=== PATIENT | female | born 1945 | race African-American/Black ===

== ENCOUNTER 2021-05-09 11:24 | Emergency (ER) | payer MEDICARE, BC ==
[~2021-05-09] VITALS: Ht 154.9 cm; Wt 100.0 kg
--- NOTE | 2021-05-09 12:34 | PHYS DOC ---
Past Medical History Additional Past Medical Histor: RA,OA Past Surgical History: Hysterectomy, Tonsillectomy, Other Additional Past Surgical Histo: KNEE Smoking Status: Never Smoker Alcohol Use: None General Adult EDM: Chief Complaint: ABDOMINAL PAIN HPI: HPI: Patient is a 75 year old female who presents with right upper quadrant abdominal pain, with nausea and vomiting. She denies constipation or diarrhea. She denies urinary symptoms. She denies chest pain, cough, dyspnea. She denies dizziness or diaphoresis. She denies syncope. She is actively vomiting on arrival. She denies any previous similar symptoms. She has not had a thing to eat today, but she had quite a heavy meal last night for dinner. She has had a previous abdominal hysterectomy but she still has her gallbladder and appendix. She denies any lower abdominal pain. She denies any radiation of pain to her back or flank. She denies urinary symptoms. She denies fall or any abdominal trauma. She denies fevers or chills. No recent sick contacts, no travel history, no recent antibiotics. No recent hospitalization. Review of Systems: Review of Systems: Constitutional: Denies fever or chills. [] Eyes: Denies change in visual acuity. [] HENT: Denies nasal congestion or sore throat. [] Respiratory: Denies cough or shortness of breath. [] Cardiovascular: Denies chest pain or edema. [] GI: Right upper quad abdominal pain, nausea, vomiting. Denies constipation or diarrhea. Denies hematemesis, melena or hematochezia. : Denies urinary symptoms Musculoskeletal: Denies back pain or joint pain. [] Integument: Denies rash or itching Neurologic: Denies headache, focal weakness or sensory changes. Denies dizziness or syncope. Psychiatric: Denies depression or anxiety. [] Heart Score: C/O Chest Pain: No Risk Factors: Risk Factors: DM, Current or recent (<one month) smoker, HTN, HLP, family history of CAD, obesity. Risk Scores: Score 0 - 3: 2.5% MACE over next 6 weeks - Discharge Home Score 4 - 6: 20.3% MACE over next 6 weeks - Admit for Clinical Observation Score 7 - 10: 72.7% MACE over next 6 weeks - Early Invasive Strategies Allergies: Allergies: Allergies Coded Allergies Type Severity Reaction Last Updated Verified No Known Drug Allergies 05/09/21 No Physical Exam: PE: Constitutional: Well developed, well nourished, no acute distress, non-toxic appearance. Initially, she is very mildly ill-appearing, actively vomiting. After antiemetics and medications, she is awake, smiling, drinking fluids, asking for food. She appears younger than stated age. HENT: Normocephalic, atraumatic, bilateral external ears normal, oropharynx moist, no oral exudates, nose normal. [] Eyes: PERRL, EOMI, conjunctiva normal, no discharge. No scleral icterus. Neck: Normal range of motion, no tenderness, supple, no stridor. [] Cardiovascular:Heart rate regular rhythm, +2 radial and +2 posterior tibial pulses bilaterally. Lungs & Thorax: Bilateral breath sounds clear to auscultation [] Abdomen: Abdomen is obese, soft, nondistended, right upper quadrant tenderness to palpation, mild voluntary guarding, no rebound tenderness, negative Woody's, no lower abdominal tenderness, no flank or abdominal ecchymoses. No palpable pulsatile mass. No CVA tenderness. No palpable organomegaly. Normal bowel sounds noted Skin: Warm, dry, no erythema, no rash. No jaundice. No diaphoresis. Back: No tenderness, no CVA tenderness. [] Extremities: No tenderness, no cyanosis, no clubbing, ROM intact, bilateral nonpitting lower extremity/ankle edema. No calf tenderness. No limb deformity. Neurologic: She is awake, alert, oriented x3, no facial asymmetry, moves all 4 extremities equally, sensation grossly intact, speech is clear and fluent, gross motor appears to be intact and normal Psychologic: Affect normal, judgement normal, mood normal. [] Current Patient Data: Vital Signs: Vital Signs Date Time Temp Pulse Resp B/P (MAP) Pulse Ox O2 Delivery O2 Flow Rate FiO2 05/09/21 12:18 97.2 68 16 175/86 (115) 95 Room Air 97.2 EKG: EKG: EKG is interpreted at 1247 Rhythm is is sinus bradycardia Rate is 55 bpm [place] is left No STEMI Radiology/Procedures: Radiology/Procedures: IMAGING REPORT Signed PATIENT: ESTEBAN MAGUIRE ACCOUNT: [id number] : 1945 LOCATION: ER AGE: 75 SEX: F EXAM STATUS: REG ER ORD. PHYSICIAN: MARIA SHEARER DO REASON: abd pain, n/v PROCEDURE: PORTABLE CHEST 1V XR CHEST 1V Clinical Indication: Reason: abd pain, n/v Comparison: None. Findings: The cardiomediastinal silhouette is normal. Lungs are clear. There is no pneumothorax. No pleural effusion is appreciated. No acute bone abnormality. IMPRESSION: No acute cardiopulmonary process. Electronically signed by: Adama Nascimento MD (05/09/2021 1:05 PM) [id number] DICTATED and SIGNED BY: ADAMA NASCIMENTO MD DATE: 05/09/21 [id number] IMAGING REPORT Signed PATIENT: ESTEBAN MAGUIRE ACCOUNT: [id number] : 1945 LOCATION: ER AGE: 75 SEX: F EXAM STATUS: REG ER ORD. PHYSICIAN: MARIA SHEARER DO REASON: RUQ abdominal pain PROCEDURE: ABDOMEN LTD INDICATION: Reason: RUQ abdominal pain / Spl. Instructions: / History: COMPARISON: None. TECHNIQUE: Grayscale and color ultrasound images obtained through the abdomen. FINDINGS: Pancreas: Limited visualization secondary to overlying structures obscuring. Liver: Echogenic appearance. Portions not well seen secondary to overlying structures obscuring. Gallbladder: Gallbladder measures up to 112 mm. Common Bile Duct: Not dilated. Right Kidney: No hydronephrosis. Aorta/IVC: Visualized portion unremarkable. IMPRESSION: * Dilated gallbladder. Would correlate for possible causes such as hydrops. * Liver is echogenic. Nonspecific but can be seen with fatty infiltration. Electronically signed by: Rosalio Shay MD (05/09/2021 1:49 PM) [id number] DICTATED and SIGNED BY: ROSALIO SHAY MD DATE: 05/09/21 [id number] Course & Med Decision Making: Course & Med Decision Making Pertinent Labs and Imaging studies reviewed. (See chart for details) The patient is given IV fluids, IV Zofran, IV fentanyl and IV Toradol. She is resting comfortably, feels much better. Nausea and vomiting symptoms are resolved, pain is now resolved. She has a nonsurgical abdominal exam. She is tolerating oral fluids well without difficulty. She is observed in the ED for several hours, no return of pain or nausea and vomiting symptoms. Gallbladder hydrops noted on ultrasound, I suspect possibility of biliary dyskinesia. She manifests no evidence of distress, no evidence of cholecystitis. Symptoms are resolved, she is feeling much better. She is asking to have a fast food cheeseburger. I explained that I recommend that she eat a low-fat diet. Avoid greasy or fried foods. I recommend she follow-up with outpatient GI services for further evaluation of possible biliary dyskinesia, she may need to undergo nuclear medicine studies for further evaluation, and she is also given outpatient information for general surgery. She is comfortable with this plan of care. I have discussed in great detail that she should adhere to a bland diet. I discussed very strict return precautions, she verbalizes understanding. Lisa Disclaimer: Lisa Disclaimer: This electronic medical record was generated, in whole or in part, using a voice recognition dictation system. Departure Departure Impression: Primary Impression: Right upper quadrant abdominal pain Additional Impression: Gallbladder hydrops Disposition: HOME / SELF CARE / HOMELESS Condition: STABLE Referrals: LISANDRA LEE DO (PCP) HERNAN MELENDREZ MD Patient Instructions: Biliary Colic Additional Instructions: Use the pain medicine and nausea medicine as needed/as directed. Eat a bland, low-fat diet. Drink plenty of fluids. Return to the ER for more severe uncontrolled pain, uncontrolled vomiting, if you develop any jaundice, which would be yellowing of the skin or eyes, if you develop any vomiting blood, temperature 100.4 or higher or for any other concerns. Please contact your primary care doctor for follow-up. Please also follow-up with outpatient GI se rvices and general surgery, as your gallbladder may be poorly functioning or not functioning, which may be causing her symptoms, in which case you will need to discuss possible outpatient gallbladder removal surgery. Scripts Ondansetron Hcl (ONDANSETRON HCL) 4 Mg Tablet 1 TAB PO PRN Q6HRS for vomiting, #20 TAB 1 Refill Prov: MARIA SHEARER DO 05/09/21 Hydrocodone Bit/Acetaminophen (HYDROCODONE-APAP 5-325 ) 1 Tab Tablet 1 TAB PO PRN Q6HRS PRN for PAIN, #20 TAB 0 Refills Prov: MARIA SHEARER DO 05/09/21 MARIA SHEARER DO May 09, 2021 12:34
[2021-05-09] MEDS ORDERED: ONDANSETRON PF 4 MG/2 ML VIAL. ONE (12:35)
[2021-05-09] MEDS ORDERED: ONDANSETRON PF 4 MG/2 ML VIAL. IVP ONE (12:45)
[2021-05-09] MEDS ORDERED: fentaNYL PF VIAL 100 MCG/2 ML VIAL IVP ONE (12:45)
[2021-05-09] MEDS ORDERED: IV NORMAL SALINE 1000ML BAG 1,000 ML IV ONE (12:45)
[2021-05-09 12:58] LABS: BASO % 0 % (0-3); EOS % 0 % (0-3); HEMATOCRIT 34.4 % (36.0-47.0); HEMOGLOBIN 11.5 g/dL (12.0-15.5); LYMPH # 0.4 x10^3/uL (1.0-4.8); LYMPH % 6 % (24-48); MEAN CORPUSCULAR HEMOGLOBIN 31 pg (25-35); MEAN CORPUSCULAR HGB CONC 33 g/dL (31-37); MEAN CORPUSCULAR VOLUME 93 fL (79-100); MONO # 0.3 x10^3/uL (0.0-1.1); MONO % 5 % (0-9); NEUT # 5.3 x10^3/uL (1.8-7.7); NEUT % 89 % (31-73); PLATELET COUNT 341 x10^3/uL (140-400); RED BLOOD COUNT 3.68 x10^6/uL (3.50-5.40); RED CELL DISTRIBUTION WIDTH 15.1 % (11.5-14.5)
--- NOTE | 2021-05-09 13:07 | RAD ---
XR CHEST 1V Clinical Indication: Reason: abd pain, n/v Comparison: None. Findings: The cardiomediastinal silhouette is normal. Lungs are clear. There is no pneumothorax. No pleural eff usion is appreciated. No acute bone abnormality. IMPRESSION: No acute cardiopulmonary process. Electronically signed by: Adama Nascimento MD (05/09/2021 1:05 PM) [id number]
[2021-05-09 13:11] LABS: CALCIUM 8.3 mg/dL (8.5-10.1); CREATININE 0.9 mg/dL (0.6-1.0); GFR 73.9
[2021-05-09 13:20] LABS: BILIRUBIN,URINE NEGATIVE (NEG); CLARITY,URINE CLEAR; COLOR,URINE YELLOW; NITRITE,URINE NEGATIVE (NEG); PROTEIN,URINE NEGATIVE (NEG-TRACE); UROBILINOGEN,URINE 0.2 mg/dL (0.2 mg/dL)
--- NOTE | 2021-05-09 13:20 | EKG ---
[facility] [address] [place] [address] Test Date: 2021-05-09 Test Time: 12:44:08 Pat Name: ESTEBAN MAGUIRE Department: Room: Gender: F [employer]: : 1945 Requested By: MARIA SHEARER Order Number: [id number] Reading MD: Misha Alexandra Measurements Intervals [place] Rate: 55 P: 47 WV: 192 QRS: 0 QRSD: 84 T: 19 QT: 440 QTc: 423 Interpretive Statements SINUS RHYTHM ATRIAL PREMATURE COMPLEX(ES) LEFTWARD AXIS Electronically Signed On 05-09-2021 13:29:52 [employer] by Misha Alexandra
[2021-05-09 13:24] LABS: ALBUMIN 3.2 g/dL (3.4-5.0); ALBUMIN/GLOBULIN RATIO 0.7 (1.0-1.7); TOTAL BILIRUBIN 0.3 mg/dL (0.2-1.0); TOTAL PROTEIN 7.6 g/dL (6.4-8.2)
[2021-05-09 13:49] LABS: BACTERIA,URINE 0 /HPF (0-FEW); RBC,URINE OCC /HPF (0-2); WBC,URINE OCC /HPF (0-4)
--- NOTE | 2021-05-09 13:51 | RAD ---
INDICATION: Reason: RUQ abdominal pain / Spl. Instructions: / History: COMPARISON: None. TECHNIQUE: Grayscale and color ultrasound images obtained through the abdomen. FINDINGS: Pancreas: Limited visualization secondary to overlying structures obscuring. Liver: Echogenic appearance. Portions not well seen secondary to overlying structures obscuring. Gallbladder: Gallbladder measures up to 112 mm. Common Bile Duct: Not dilated. Right Kidney: No hydronephrosis. Aorta/IVC: Visualized portion unremarkable. IMPRESSION: * Dilated gallbladder. Would correlate for possible causes such as hydrops. * Liver is echogenic. Nonspecific but can be seen with fatty infiltration. Electronically signed by: Ayush Shay MD (05/09/2021 1:49 PM) [id number]
[2021-05-09] MEDS ORDERED: KETOROLAC 15 MG/ML VIAL. IVP ONE (15:15)
[2021-05-09 16:47] VITALS: BP 132/65
[2021-05-09] MEDS ORDERED: HYDR-2761 PO (17:07)
[2021-05-09] MEDS ORDERED: ONDA-84 PO (17:07)
== END 2021-05-09 17:31 | disposition home or self-care (01) ==
LOC: ER 11:24
DX: R10.11 Right upper quadrant pain (principal); R11.2 Nausea with vomiting, unspecified; K82.1 Hydrops of gallbladder
CPT/HCPCS: 36415; 71045; 76705; 80053; 81001; 83605; 83690; 83880; 84484; 85025; 93005; 96361; 96374; 96375; 99285; J1885; J2405; J3010; J7030